=== PATIENT | female | born 1995 | race Caucasian/White ===

== ENCOUNTER 2025-01-17 02:58 | Emergency (ER) | payer SELFPAY ==
--- OUTSIDE RECORDS SUMMARY | 2020-02-28 05:28 | XMS_ITS | Continuity of Care Document ---
Author Organization [facility] Address [id number] [address] Phone Care Team Providers Care Grease Cup Filler Name Role Phone Marlon Hernandez MD Unavailable Unavailable Allergies, Adverse Reactions, Alerts Substance Reaction Status Criticality No Known Allergies Active No Inform ation Medications Medication Instructions Dosage Effective Dates (start - stop) Status Comments Ortho Micronor 0.35 mg tablet take 1 tablet by oral route every day starting two weeks after delivery. - Active 99% effective as long as 100%. 8% failure rate if supplementing or feeding other than breast milk Plus (calcium carbonate) 27 mg iron-1 mg tablet take 1 tablet by oral route every day 1.00 tablet - Active Problems Condition Type Effective Dates (start - stop) Clini jason Status Comments No Known Problems Procedures Procedure Date OFFICE/OUTPATIENT VISIT, EST URINALYSIS AUTO W/O SCOPE OFFICE/OUTPATIENT VISIT, EST URINALYSIS AUTO W/O SCOPE OFFICE/OUTPATIENT VISIT, EST URINALYSIS AUTO W/O SCOPE Treatment Plan Complete Resin-Based Composite One Surface, Posterior Resin-Based Composite One Surface, Posterior EDR Approval Note OFFICE/OUTPATIENT VISIT, EST URINALYSIS AUTO W/O SCOPE COMPLETE CBC W/AUTO DIFF WBC ROUTINE VENIPUNCTURE CULTURE AEROBIC IDENTIFY STREP B DNA AMP PROBE OFFICE/OUTPATIENT VISIT, EST URINALYSIS AUTO W/O SCOPE OFFICE/OUTPATIENT VISIT, EST URINALYSIS AUTO W/O SCOPE DRUG SCREEN OFFICE/OUTPATIENT VISIT, EST DRUG SCREEN URINALYSIS AUTO W/O SCOPE IMMUNIZATION ADMIN TDAP VACCINE >7 IM OFFICE/OUTPATIENT VISIT, EST DRUG SCREEN URINALYSIS AUTO W/O SCOPE GLUCOSE TEST COMPLETE CBC W/AUTO DIFF WBC ROUTINE VENIPUNCTURE OFFICE/OUTPATIENT VISIT, EST DRUG SCREEN URINALYSIS AUTO W/O SCOPE OB US >/= 14 WKS SNGL FETUS - Global Jun OFFICE/OUTPATIENT VISIT, EST DRUG SCREEN URINALYSIS AUTO W/O SCOPE CULT, (U) ROUTINE OFFICE/OUTPATIENT VISIT, EST DRUG SCREEN URINALYSIS AUTO W/O SCOPE CULT, (U) ROUTINE OB US < 14 WKS SINGLE FETUS OB US < 14 WKS, SINGLE FETUS PSYTX PT&/FAMILY 30 MINUTES OFFICE/OUTPATIENT VISIT, NEW IMMUNIZATION ADMIN FLU VAC NO PRSV 4 KYM 6 Months+ 019 DRUG SCREEN URINE TEST URINALYSIS AUTO W/O SCOPE No Charge Lab Codes OBSTETRIC PANEL No Charge Lab Codes No Charge Lab Codes No Charge Lab Codes No Charge Lab Codes HEPATITIS C AB TEST ROUTINE VENIPUNCTURE CULT, (U) ROUTINE No Charge Lab Codes VARICELLA ZOSTER VIRUS ANTIBODY (IGG) De CHLAMYDIA/GONNORRHEA TRICHOMONAS VAGINALIS AMPLIF THINPREP TIS PAP REFLEX HPV mRNA E6/E7 D Comprehensive Oral Evaluatio n New Or Established Bitewings Four Films Panoramic Film Intraoral Periapical First Film Intraoral Periapical Each Additional Film Intraoral Periapical Each Additional Film Intraoral Periapical Each Additional Film EDR Approval Note NO CHARGE Advance Directives Directive Yes / No Effective Date File Name No Information Encounters Encounter Description Practice Location Reason(s) For Visit Diagnoses Date Provider Providers Copied on Encounter [facility], [id number]- [place], [address], [place] tel:[phone] Pediatrics F1 No Information 0 David Mason. [address] [place], [place], [address], [place]. tel:[phone] [facility], [id number]- [place], [address], [place] tel:[phone] Family Medicine F1 No Information 0 David Mason. [address], [place], [address], [place]. tel:[phone] OFFICE/OUTPA TIENT VISIT, EST [facility], [address] [id number]- [place], [address], [place] tel:[phone] [facility] F1 routine (chief complaint) Supervision of high risk , 3rd trimester 0 David Mason. [address], [place], [address], [place]. tel:[phone] Referring Provider: Marlon Rios, [address] [place], [address] . tel:[phone] OFFICE/OUTPA TIENT VISIT, [facility], [address] 9841883RS- [place], [address], [place] tel:[phone] [place] [phone] routine (chief complaint) Supervision of high risk , 3rd trimester 0 David Mason. [address], [place], [address], [place]. tel:[phone] Referring Provider: Marlon Rios, [address] [place], [address] . tel:[phone] OFFICE/OUTPA TIENT VISIT, [facility], [id number] [place], [address], [place] tel:[phone] [place] [phone] routine (chief complaint) Supervision of high risk , 3rd trimesterSuper vision of other high risk pregnancies, third trimester 0 David Mason. [address], [place], [address], [place]. tel:[phone] Referring Provider: Marlon Rios, [address] [place], [address] . tel:[phone] [facility], [address] [place], [address], [place] tel:[phone] Dental [place] [phone] Encounter for dental exam and cleaning w/o abnormal findings 0 No Information OFFICE/OUTPA TIENT VISIT, [facility], [address] [place], [address], [place] tel:[phone] [place] [address] routine (chief complaint) Supervision of high risk , 3rd trimesterSuper vision of other high risk pregnancies, third trimester 0 David Mason. [address], [place], [address], [place]. tel:[phone] Referring Provider: Marlon Rios, [address] [place], [address] . tel:[phone] OFFICE/OUTPA TIENT VISIT, [facility], [address] [place], [address], [place] tel:[phone] [place] [address] routine (chief complaint) Supervision of high risk , 3rd trimesterSuper vision of other high risk pregnancies, third trimester 0 David Mason. [address], [place], [address], [place]. tel:[phone] Referring Provider: Marlon Rios, [address] [place], [address] . tel:[phone] OFFICE/OUTPA TIENT VISIT, [facility], [address] [id number], [address], [place] tel:[phone] [place] [address] routine (chief complaint) Supervision of high risk , 3rd trimesterSuper vision of other high risk pregnancies, third trimester 0 David Mason. [address], [place], [address], [place]. tel:[phone] Referring Provider: Marlon Rios, [address] [place], [address] . tel:[phone] OFFICE/OUTPA TIENT VISIT, [facility], [address] 73569[place], [address], [place] tel:[phone] [place] [phone] routine (chief complaint) Supervision of high risk , 3rd trimesterSuper vision of other high risk pregnancies, third trimester 0 David Mason. [address], [place], [address], [place]. tel:[phone] Referring Provider: Marlon Rios, [address] [place], [address] . tel:[phone] OFFICE/OUTPA TIENT VISIT, [facility], [address] [id number], [address], [place] tel:[phone] [place] [address] routine (chief complaint) Supervision of high risk , 3rd trimesterEncnt r for suprvsn of normal preg, unsp, third trimesterSuper vision of high risk , unsp, second trimester Apr-3 0-202 0 David Mason. [address], [place], [address], [place]. tel:[phone] Referring Provider: Marlon Rios, [address] [place], [address] . tel:[phone] OFFICE/OUTPA TIENT VISIT, [facility], [address] 0989373[place], [address], [place] tel:[phone] [place] [phone] routine (chief complaint) Supervision of other high risk pregnancies, second trimesterEncou nter for suprvsn of normal , second trimester Mar-1 9-202 0 David Mason. [address], [place], [address], [place]. tel:[phone] Referring Provider: Marlon Rios, [address] [place], [address] . tel:[phone] [facility], [id number] 68085[place]CD[place], [address], [place] tel:[phone] [place] [address] Encounter for screening for malformations Mar-0 5-202 0 Antonella Cummings. [address] [place], [address], [place]. tel:[phone] Referring Provider: Zoila Berman, [address] [place], [address]. tel:[phone] OFFICE/OUTPA TIENT VISIT, [facility], [address] [id number]- [place], [address], [place] tel:[phone] [place] [phone] routine (chief complaint) Supervision of other high risk pregnancies, second trimesterEncou nter for screening for malformationsE ncounter for suprvsn of normal , second trimester 0 Antonella Cummings. [address] [place], [address], [place]. tel:[phone] Referring Provider: Zoila Berman, [address] [place], [address]. tel:[phone] OFFICE/OUTPA TIENT VISIT, [facility], [address] [id number], [address], [place] tel:[phone] [place] [phone] routine (chief complaint) Supervision of high risk , 1st trimester 0 David Mason. [address], [place], [address], [place]. [phone] Referring Provider: Marlon Rios, [address] [place], [address] . tel:[phone] [facility], [address] 0307450NI- [place], [address], [place] tel:[phone] [place] [phone] Encounter for screening for uncertain dates 9 David Mason. [address], [place], [address], [place]. tel:[phone] Referring Provider: Marlon Rios, [address] [place], [address] . tel:[phone] [facility], [address] 6448375BE- [place], [address], [place] tel:[phone] [place] [phone] Encounter for screening for uncertain datesIrregular menstruation, unspecified 9 Antonella Cummings. [address] [place], [address], [place]. tel:[phone] Referring Provider: Zoila Berman, [address] [place], [address]. tel:[phone] PSYTX PT&/FAMILY 30 MINUTES [facility], [address] 5796928EOD[place], [address], [place] tel:[phone] [facility] 9 No Information OFFICE/OUTPA TIENT VISIT, [facility], [id number] 7203245MNDewey[place], [place], [address], [place] tel:[phone] [place] [phone] (chief complaint) Supervision of high risk , 1st trimesterEncou nter for STD screeningEncou nter for screening for malignant neoplasm of cervixEncntr for overlock sleeve setter exam (general) (routine) w/o abn findingsNausea Encounter for suprvsn of normal , unsp trimesterEncou nter for screening, unspecified 9 Antonella Cummings. [address] [place], [address], [place]. tel:[phone] Referring Provider: Zoila Berman, [address] [place], [address]. tel:[phone] [facility], [address] 3803807JXDewey[place], [place], [address], [place] tel:[phone] Dental [place] [phone] Encounter for dental exam and cleaning w/o abnormal findings 9 Heather South. [address], [place], [address], [place]. tel:[phone] Referring Provider: Brannon Romero, [address] [place], [address] . tel:[phone] [facility], [address] [id number]- [place], [address], [place] tel:[phone] [place] [address] Insufficient social insurance and welfare support Health [facility]. [address], [place], [address], [place]. tel:[phone] [facility], [address] 0696618PH- [place], [address], [place] tel:[phone] [place] [address] No Information No Information As per patient privacy policy some of the clinical information may not be visible. Family History Family Member Type Diagnosis Age At Onset Mother Problem (finding) Thyroid disease Maternal grandfather Problem (finding) Diabetes mellit Mother Problem (finding) Alive and well Sister Problem (finding) Alive and well Sister Problem (finding) endometriosis in first degree relative Immunizations Vaccine Date Status Comments Tdap (7 yrs and older) administered Note: Pt showed no reaction in clinic. VIS dated 06/17/14 given. [facility] 39175-694-04 ; Source: New Immunization Record Flu Vaccine 6 Months and older administered Note: pt tolerated i njection well. no adverse reaction noted in clinic. tt ma VIS given 12/06/2018 ; Source: New Immunization Record Payers Payer name Insurance type Covered green party ID Jesica patricio(s) Negrito Temp Medicaid [id number] Social History Type Description Quantity Date Captured Comments Alcohol Use Details Unknown Caffeine Use Details Unknown Tobacco Use Status No Information Smoking Status No Information Sex Female Sexual Orientation Heterosexual Gender Identity Female Chief Complaint And Reason For Visit No Information Reason For Referral Reason For Referral No Information Plan Of Treatment Date Type Action Status Goal Tobacco cessation counseling completed Referral Ordered: Referrals: Location: [facility] ordered Future Order: Radiology Order OB US, Limited, Fetus (S) ([id number]), Ordered on: Ordered Future Order: Lab Order Drug Scr een ([id number]), Sent on: Sent Future Order: Lab Order GTT 1 Hr Screen ([id number]), Sent on: Sent Future Order: Lab Order CBC With Differential/Platelet ([id number]), Sent on: Sent Future Order: Radiology Order OB US >= 14 Wks, Single Fetus ([id number]), Ordered on: Ordered Future Order: Lab Order CULTURE, URINE, ROUTINE ([id number]), Sent on: Sent History Of Present Illness Encounter Date Complaint History Of Prese nt Illness routine routine routine routine routine routine routine routine routine routine See PND routine Patient was not taking control pills at or around the time of her LMP. Context: confirmed by home test on 03/16/2019. This is first . Associated symptoms include breast tenderness, fatigue, headache, nausea, urinary difficulty, vomiting. Pertinent negatives include bleeding, edema, spotting, vaginal discharge. Additional information: Pt reports burning with urination 03/08/19 took azo and states symptoms have resolved.. Functional Status Date Functional Assessmen t No Information Instructions Date Instruction Additional Infor mation continue with care Rela lobo to Supervision of other high risk pregnancies, second trimester travel tobacco (ask, advise , assess, assist and arrange) alcohol illicit / recreational drugs use of any medicatio ns (including supplements, vitamins, herbs, OTC drugs) smoking counseling domestic violence seat belt use childbirth classes / hospital facilities Genetic Testing Book Vitamins risk factors identif ied by history anticipated course of c are nutrition and weight gain counseling, special diet toxoplasmosis precau tions (cats / raw meat) sexual activity exercise indications for ultrasound influenza vaccine environmental / work hazards HIV and other routine t ests Assessments Type Assessment Date No Information Patient Care Teams Name Effective Dates (start - stop) Status Members No Information
--- NOTE | 2025-01-17 02:58 | ECG_ITS ---
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
--- NOTE | 2025-01-17 03:01 | XRR_ITS ---
PROCEDURE INFORMATION: Exam: XR Chest Exam date and time: 01/17/2025 3:30 AM Age: 29 years old Clinical indication: Pain; Angina pectoris; Additional info: Cp TECHNIQUE: Imaging protocol: Radiologic exam of the chest. Views: 1 view. COMPARISON: No relevant prior studies available. FINDINGS: Lungs: There is no consolidation. Pleural spaces: No pleural effusion or pneumothorax. Heart/Mediastinum: The heart and mediastinum are normal in size. Bones/joints: Unremarkable. XR/XR chest 1V portable [id number] IMPRESSION: No acute findings.
[2025-01-17 03:02] VITALS: BP 137/99; PULSE 97; RESP 18; TEMP 36.6; O2SAT 99; BMI 27.4
--- NOTE | 2025-01-17 03:06 | W.ED.ABDPA2 ---
Documented by User: Carol Mann MD 01/17/25 03:09 HPI - Abdominal Pain General: Chief Complaint: Abdominal Pain Stated Complaint: CP Time Seen by Provider: 01/17/25 03:00 Source: patient Mode of arrival: ambulatory Limitations: no limitations History of Present Illness: 21-year-old female states she been having epigastric abdominal pain has been going on for 2 weeks states she has seen her PCP start antibiotic for possible urinalysis and had blood drawn. She states she is continue had pain across her abdomen states that hide it went up into her chest. She denies any fevers denies any worsening. Factors. Related Data Previous Rx's ?Medication ?Instructions ?Recorded amoxicillin 875 mg-potassium 1 tab PO BID #14 tabs 03/17/24 clavulanate 125 mg tablet ofloxacin 0.3 % eye drops 2 drp ophthalmic (eye) TID #5 mL 03/17/24 cephalexin 500 mg tablet 500 mg PO TID 7 days #21 tabs 01/17/25 omeprazole 40 mg capsule,delayed 40 mg PO DAILY #30 caps 01/17/25 release ondansetron 4 mg disintegrating 4 mg PO Q8H PRN nausea and 01/17/25 tablet vomiting #10 tabs sucralfate 1 gram tablet (Carafate) 1 g PO TID 4 weeks #84 tabs 01/17/25 Allergies Allergy/AdvReac Type Severity Reaction Status Date / Time codiene Allergy Intermediate ADR-Itching Uncoded 03/17/24 18:07 Review of Systems Card: Reports: chest pain GI: Reports: abdominal pain [facility] ED PFSH: Social History Smoking and tobacco/nicotine status: current every day tobacco/nicotine user Physical Exam Const: COMMON NORMALS: no acute distress, patient oriented x3 and healthy appearing HENMT: COMMON NORMALS: normocephalic and atraumatic HEAD & SCALP: normocephalic and atraumatic Eye: COMMON NORMALS: conjunctivae normal CONJUNCTIVA: Yes conjunctivae normal Neck/C-Spine: COMMON NORMALS: full ROM and supple Chest: COMMONS NORMALS: normal inspection of the chest and normal palpation of entire chest wall Resp: COMMON NORMALS: normal respiratory effort, No retractions, No use of accessory muscles and clear to auscultation bilaterally AUSCULTATION: clear to auscultation bilaterally Cardio: COMMON NORMALS: regular rate, regular rhythm and No murmurs present (Cardio) RATE: regular rate RHYTHM: regular rhythm GI: COMMON NORMALS: Normal to inspection, nondistended, normoactive bowel sounds present, Soft to palpation, non-tender and no masses PALPATION: Yes Soft to palpation Extremity: COMMON NORMALS: normal to inspection and full ROM Neuro: COMMON NORMALS: patient oriented x3, moves all extremities and no focal motor deficits Psych: COMMON NORMALS: mental status grossly normal, Normal thought process present and cooperative THOUGHT PROCESS: Normal thought process present Skin: COMMON NORMALS: no rashes or lesions noted and no wounds GENERAL SKIN EXAM: no rashes or lesions noted Course Vital Signs: Vital signs: Vital Signs Temperature 97.8 F 01/17/25 03:02 Pulse Rate 79 01/17/25 04:03 Respiratory Rate 20 H 01/17/25 04:48 Blood Pressure 117/74 01/17/25 04:03 Pulse Oximetry 98 01/17/25 04:03 Oxygen Delivery Me thod Room Air 01/17/25 03:02 MDM - Abdominal Pain Medical Records I reviewed the patient's medical records. Lab Data I reviewed the patient's lab results. 01/17/25 03:47 01/17/25 03:47 Labs/Radiology: Radiology Impressions Chest X-Ray 01/17/25 03:01 IMPRESSION: No acute findings. Laboratory Results WBC 9.39 10^3/uL (3.29-11.43) 01/17/25 03:47 RBC 5.32 10^6/uL (3.85-5.65) 01/17/25 03:47 Hgb 15.70 g/dL (11.27-16.99) 01/17/25 03:47 Hct 43.6 % (36-47) 01/17/25 03:47 MCV 82.0 fl (85-98) L 01/17/25 03:47 MCH 29.5 pg (27-33) 01/17/25 03:47 MCHC 36.0 g/dL (30-55) 01/17/25 03:47 RDW 14.0 % (12.1-15.1) 01/17/25 03:47 Plt Count 344 10^3/cmm (157-399) 01/17/25 03:47 MPV 9.5 fL (7.4-10.4) 01/17/25 03:47 Neut % (Auto) 69.8 % 01/17/25 03:47 Lymph % (Auto) 20.6 % 01/17/25 03:47 [place] % (Auto) 5.5 % 01/17/25 03:47 Eos % (Auto) 2.8 % 01/17/25 03:47 Baso % (Auto) 1.0 % 01/17/25 03:47 Neut # (Auto) 6.56 10^3/uL (1.8-7.7) 01/17/25 03:47 Lymph # (Auto) 1.9 10^3/uL (0.8-4.8) 01/17/25 03:47 [place] # (Auto) 0.5 10^3/uL (0.2-0.9) 01/17/25 03:47 Eos # (Auto) 0.3 10^3/uL (0.0-0.8) 01/17/25 03:47 Baso # (Auto) 0.1 10^3/uL (0.0-0.1) 01/17/25 03:47 Nucleated RBC % (auto) 0 % 01/17/25 03:47 Nucleated RBCs # 0.0 /100WBC 01/17/25 03:47 Sodium 139 mmol/L (136-145) 01/17/25 03:47 Potassium 3.5 mmol/L (3.5-5.1) 01/17/25 03:47 Chloride 101 mmol/L (98-107) 01/17/25 03:47 Carbon Dioxide 24 mmol/L (22-29) 01/17/25 03:47 Anion Gap 17.5 (5-19) 01/17/25 03:47 BUN 6 mg/dL (6-20) 01/17/25 03:47 Creatinine 0.7 mg/dL (0.5-0.9) 01/17/25 03:47 GFR Calculation 99.6 mL/min (90-130) 01/17/25 03:47 Glucose 101 mg/dL (65-115) 01/17/25 03:47 Calculated Osmolality 286 mOsm/kg (285-295) 01/17/25 03:47 Calcium 9.4 mg/dL (8.5-10.5) 01/17/25 03:47 Total Bilirubin 1.7 mg/dL (0.15-1.2) H 01/17/25 03:47 AST 88 U/L (0-32) H 01/17/25 03:47 ALT 53 U/L (0-33) H 01/17/25 03:47 Alkaline Phosphatase 139 U/L (35-105) H 01/17/25 03:47 Total Protein 7.4 g/dL (6.6-8.7) 01/17/25 03:47 Albumin 4.2 g/dL (3.5-5.2) 01/17/25 03:47 Globulin 3.2 g/dL (1.3-4.6) 01/17/25 03:47 Lipase 76 U/L (13-60) H 01/17/25 03:47 HCG, Qual Negative (Negative) 01/17/25 03:47 Urine Color [place] (Yellow) A 01/17/25 04:05 Urine Appearance Cloudy (CLEAR) A 01/17/25 04:05 Urine pH 6.0 (5-7) 01/17/25 04:05 Ur Specific [place] 1.026 (1.005-1.030) 01/17/25 04:05 Urine Protein 1+ (Negative) A 01/17/25 04:05 Urine Glucose (UA) Negative (Normal) 01/17/25 04:05 Urine Ketones 1+ (Negative) H 01/17/25 04:05 Urine Blood Negative (Negative) 01/17/25 04:05 Urine Nitrate Positive (Negative) A 01/17/25 04:05 Urine Bilirubin 2+ (Negative) H 01/17/25 04:05 Urine Urobilinogen 1.0 mg/dL (Negative) 01/17/25 04:05 Ur Leukocyte Esterase Trace (Negative) A 01/17/25 04:05 Urine RBC 0-2 /hpf (0-2) 01/17/25 04:05 Urine WBC 21-50 /hpf (0-5) H 01/17/25 04:05 Ur Squamous Epith Cells 21-50 /hpf (0-5) H 01/17/25 04:05 Amorphous Sediment Not Reportable 01/17/25 04:05 Urine Bacteria 2+ /hpf (NONE) H 01/17/25 04:05 Hyaline Casts 15.71 /lpf 01/17/25 04:05 XR interpretation done by ED provider, pending radiology final review ED provider radiology interpretation(s): cxr: no acute abnormality EKG Data EKG 1: I personally reviewed and interpreted this EKG as follows: EKG interpretation date: 01/17/25 EKG interpretation time: 02:58 Interpretation: nsr hr [address] elevation qrs 83 qtc 396 Discharge Plan Discharge Patient Disposition: Home Clinical Impression: Urinary tract infection, Abdominal pain Condition: Stable Prescriptions: New sucralfate [Carafate] 1 gram tablet 1 g PO TID 28 Days Qty: 84 0RF Rx Instructions: with meals omeprazole 40 mg capsule,delayed release(DR/EC) 40 mg PO DAILY Qty: 30 0RF ondansetron 4 mg tablet,disintegrating 4 mg PO Q8H PRN (Reason: nausea and vomiting) Qty: 10 0RF cephalexin 500 mg tablet 500 mg PO TID 7 Days Qty: 21 0RF No Action ofloxacin 0.3 % drops 2 drp ophthalmic (eye) TID Qty: 5 0RF amoxicillin-pot clavulanate 875-125 mg tablet 1 tab PO BID Qty: 14 0RF Discharge Orders: Discharge ED (Routine); Ordered 01/17/25 Ordered By: Esme Chin Referrals: Estephania Fisher FNP [Primary Care Provider, Nurse Practitioner] Discharge Diet: Advance as tolerated Discharge Activity: Increase activity as tolerated Patient Instructions: Abdominal Pain (ED), Opioid Safety, Pain Management, Patient Portal & Rafaela Instructions Activity Restrictions/Additional Instructions: Thank you for choosing [facility] for your healthcare needs today. You have been screened and evaluated and felt safe for discharge. Health conditions do change or evolve sometimes and as such it is important that you follow up with your Primary Doctor to be re checked, 3-5 days is a general good time frame for follow up. You are always welcome to return to the ED for re assessment if your symptoms are worsening or you have new concerns Print Language: South Korean Coding Level of Care Code ED Filenet Developer for Chg Fwd Documented by User: Esme Cihn MD 01/17/25 06:20 HPI - Abdominal Pain General: Chief Complaint: Abdominal Pain Stated Complaint: CP Time Seen by Provider: 01/17/25 03:00 Related Data Previous Rx's ?Medication ?Instructions ?Recorded amoxicillin 875 mg-potassium 1 tab PO BID #14 tabs 03/17/24 clavulanate 125 mg tablet ofloxacin 0.3 % eye drops 2 drp ophthalmic (eye) TID #5 mL 03/17/24 cephalexin 500 mg tablet 500 mg PO TID 7 days #21 tabs 01/17/25 omeprazole 40 mg capsule,delayed 40 mg PO DAILY #30 caps 01/17/25 release ondansetron 4 mg disintegrating 4 mg PO Q8H PRN nausea and 01/17/25 tablet vomiting #10 tabs sucralfate 1 gram tablet (Carafate) 1 g PO TID 4 weeks #84 tabs 01/17/25 Allergies Allergy/AdvReac Type Severity Reaction Status Date / Time codiene Allergy Intermediate ADR-Itching Uncoded 03/17/24 18:07 PFS ED PFSH: Social History Smoking and tobacco/nicotine status: current every day tobacco/nicotine user Course Vital Signs: Vital signs: Vital Signs Temperature 97.8 F 01/17/25 03:02 Pulse Rate 79 01/17/25 04:03 Respiratory Rate 20 H 01/17/25 04:48 Blood Pressure 117/74 01/17/25 04:03 Pulse Oximetry 98 01/17/25 04:03 Oxygen Delivery La thod Room Air 01/17/25 03:02 MDM - Abdominal Pain Medical Decision Making Patient care transferred to [facility] at shift change awaiting results of CT scan. Patient does have a urinary tract infection. CT scan has nonspecific findings. Mildly enlarged spleen. Nothing acute. Lab Data 01/17/25 03:47 01/17/25 03:47 Labs/Radiology: Radiology Impressions Chest X-Ray 01/17/25 03:01 IMPRESSION: No acute findings. Laboratory Results WBC 9.39 10^3/uL (3.29-11.43) 01/17/25 03:47 RBC 5.32 10^6/uL (3.85-5.65) 01/17/25 03:47 Hgb 15.70 g/dL (11.27-16.99) 01/17/25 03:47 Hct 43.6 % (36-47) 01/17/25 03:47 MCV 82.0 fl (85-98) L 01/17/25 03:47 MCH 29.5 pg (27-33) 01/17/25 03:47 MCHC 36.0 g/dL (30-55) 01/17/25 03:47 RDW 14.0 % (12.1-15.1) 01/17/25 03:47 Plt Count 344 10^3/cmm (157-399) 01/17/25 03:47 MPV 9.5 fL (7.4-10.4) 01/17/25 03:47 Neut % (Auto) 69.8 % 01/17/25 03:47 Lymph % (Auto) 20.6 % 01/17/25 03:47 [place] % (Auto) 5.5 % 01/17/25 03:47 Eos % (Auto) 2.8 % 01/17/25 03:47 Baso % (Auto) 1.0 % 01/17/25 03:47 Neut # (Auto) 6.56 10^3/uL (1.8-7.7) 01/17/25 03:47 Lymph # (Auto) 1.9 10^3/uL (0.8-4.8) 01/17/25 03:47 [place] # (Auto) 0.5 10^3/uL (0.2-0.9) 01/17/25 03:47 Eos # (Auto) 0.3 10^3/uL (0.0-0.8) 01/17/25 03:47 Baso # (Auto) 0.1 10^3/uL (0.0-0.1) 01/17/25 03:47 Nucleated RBC % (auto) 0 % 01/17/25 03:47 Nucleated RBCs # 0.0 /100WBC 01/17/25 03:47 Sodium 139 mmol/L (136-145) 01/17/25 03:47 Potassium 3.5 mmol/L (3.5-5.1) 01/17/25 03:47 Chloride 101 mmol/L (98-107) 01/17/25 03:47 Carbon Dioxide 24 mmol/L (22-29) 01/17/25 03:47 Anion Gap 17.5 (5-19) 01/17/25 03:47 BUN 6 mg/dL (6-20) 01/17/25 03:47 Creatinine 0.7 mg/dL (0.5-0.9) 01/17/25 03:47 GFR Calculation 99.6 mL/min (90-130) 01/17/25 03:47 Glucose 101 mg/dL (65-115) 01/17/25 03:47 Calculated Osmolality 286 mOsm/kg (285-295) 01/17/25 03:47 Calcium 9.4 mg/dL (8.5-10.5) 01/17/25 03:47 Total Bilirubin 1.7 mg/dL (0.15-1.2) H 01/17/25 03:47 AST 88 U/L (0-32) H 01/17/25 03:47 ALT 53 U/L (0-33) H 01/17/25 03:47 Alkaline Phosphatase 139 U/L (35-105) H 01/17/25 03:47 Total Protein 7.4 g/dL (6.6-8.7) 01/17/25 03:47 Albumin 4.2 g/dL (3.5-5.2) 01/17/25 03:47 Globulin 3.2 g/dL (1.3-4.6) 01/17/25 03:47 Lipase 76 U/L (13-60) H 01/17/25 03:47 HCG, Qual Negative (Negative) 01/17/25 03:47 Urine Color [place] (Yellow) A 01/17/25 04:05 Urine Appearance Cloudy (CLEAR) A 01/17/25 04:05 Urine pH 6.0 (5-7) 01/17/25 04:05 Ur Specific [place] 1.026 (1.005-1.030) 01/17/25 04:05 Urine Protein 1+ (Negative) A 01/17/25 04:05 Urine Glucose (UA) Negative (Normal) 01/17/25 04:05 Urine Ketones 1+ (Negative) H 01/17/25 04:05 Urine Blood Negative (Negative) 01/17/25 04:05 Urine Nitrate Positive (Negative) A 01/17/25 04:05 Urine Bilirubin 2+ (Negative) H 01/17/25 04:05 Urine Urobilinogen 1.0 mg/dL (Negative) 01/17/25 04:05 Ur Leukocyte Esterase Trace (Negative) A 01/17/25 04:05 Urine RBC 0-2 /hpf (0-2) 01/17/25 04:05 Urine WBC 21-50 /hpf (0-5) H 01/17/25 04:05 Ur Squamous Epith Cells 21-50 /hpf (0-5) H 01/17/25 04:05 Amorphous Sediment Not Reportable 01/17/25 04:05 Urine Bacteria 2+ /hpf (NONE) H 01/17/25 04:05 Hyaline Casts 15.71 /lpf 01/17/25 04:05 Discharge Plan Discharge Patient Disposition: Home Clinical Impression: Urinary tract infection, Abdominal pain Condition: Stable Prescriptions: New sucralfate [Carafate] 1 gram tablet 1 g PO TID 28 Days Qty: 84 0RF Rx Instructions: with meals omeprazole 40 mg capsule,delayed release(DR/EC) 40 mg PO DAILY Qty: 30 0RF ondansetron 4 mg tablet,disintegrating 4 mg PO Q8H PRN (Reason: nausea and vomiting) Qty: 10 0RF cephalexin 500 mg tablet 500 mg PO TID 7 Days Qty: 21 0RF No Action ofloxacin 0.3 % drops 2 drp ophthalmic (eye) TID Qty: 5 0RF amoxicillin-pot clavulanate 875-125 mg tablet 1 tab PO BID Qty: 14 0RF Discharge Orders: Discharge ED (Routine); Ordered 01/17/25 Ordered By: Esme Chin Referrals: Estephania Fisher FNP [Primary Care Provider, Nurse Practitioner] Discharge Diet: Advance as tolerated Discharge Activity: Increase activity as tolerated Patient Instructions: Abdominal Pain (ED), Opioid Safety, Pain Management, Patient Portal & Rafaela Instructions Activity Restrictions/Additional Instructions: Thank you for choosing [facility] for your healthcare needs today. You have been screened and evaluated and felt safe for discharge. Health conditions do change or evolve sometimes and as such it is important that you follow up with your Primary Doctor to be re checked, 3-5 days is a general good time frame for follow up. You are always welcome to return to the ED for re assessment if your symptoms are worsening or you have new concerns Print Language: South Korean Coding Level of Care Code ED Filenet Developer for Masoud Tapia
[2025-01-17 03:56] VITALS: RESP 18
[2025-01-17] MEDS: ondansetron 2 mg/ML SDV 2 mL 4 MG IVP (03:56)
[2025-01-17] MEDS: lidocaine 2% viscous 15 ML, aluminum-mag hydrox-simethicon 30 ML, sucralfate oral liq 1 GM PO (03:56)
[2025-01-17] MEDS: morphine 4 mg/mL SDV 1 mL IVP ×2 (03:56→04:48)
[2025-01-17 03:58] LABS: Hematocrit 43.6 % (36-47); Hemoglobin 15.70 g/dL (11.27-16.99); Mean Corpuscular HGB Conc 36.0 g/dL (30-55); Mean Corpuscular Hemoglobin 29.5 pg (27-33); Mean Corpuscular Volume 82.0 fl (85-98); Nucleated Red Blood Cells % 0 %; Platelet Count 344 10^3/cmm (157-399); Red Blood Count 5.32 10^6/uL (3.85-5.65); White Blood Count 9.39 10^3/uL (3.29-11.43)
[2025-01-17 04:03] VITALS: BP 117/74; PULSE 79; O2SAT 98
--- NOTE | 2025-01-17 04:03 | PC.NURSE ---
Delay in obtaining labs due to inability to establish IV access, requiring 5 attempts.
[2025-01-17 04:13] LABS: Glucose Urine UA Negative (Normal); Nitrate Urine Positive (Negative); Specific Gravity, Urine 1.026 (1.005-1.030)
[2025-01-17 04:17] LABS: HCG, Serum Qual Negative (Negative)
[2025-01-17 04:17] LABS: Add Urine Microscopic? YES
[2025-01-17 04:18] LABS: Alanine Aminotransferase 53 U/L (0-33); Albumin Level 4.2 g/dL (3.5-5.2); Alkaline Phosphatase 139 U/L (35-105); Anion Gap 17.5 (5-19); Aspartate Amino Transferase 88 U/L (0-32); Blood Urea Nitrogen 6 mg/dL (6-20); Calcium 9.4 mg/dL (8.5-10.5); Carbon Dioxide 24 mmol/L (22-29); Chloride 101 mmol/L (98-107); Creatinine Clr Calc Pharmacy 116.8278; Globulin 3.2 g/dL (1.3-4.6); Glucose 101 mg/dL (65-115); Lipase 76 U/L (13-60); Osmolality Calculated 286 mOsm/kg (285-295); Potassium 3.5 mmol/L (3.5-5.1); Sodium 139 mmol/L (136-145); Total Protein 7.4 g/dL (6.6-8.7)
[2025-01-17 04:36] LABS: UA Slide Review UA Slide Review Perf
--- NOTE | 2025-01-17 04:44 | CTR_ITS ---
PROCEDURE INFORMATION: Exam: CT Abdomen And Pelvis With Contrast Exam date and time: 01/17/2025 4:55 AM Age: 29 years old Clinical indication: Abdominal pain; Prior surgery; Surgery date: 6+ months; Surgery type: Gallbladder, fallopian tubes removed; Additional info: Abd pain TECHNIQUE: Imaging protocol: Computed tomography of the abdomen and pelvis with contrast. Radiation optimization: All CT scans at this facility use at least one of these dose optimization techniques: automated exposure control; mA and/or kV adjustment per patient size (includes targeted exams where dose is matched to clinical indication); or iterative reconstruction. Contrast material: [id number]; Contrast volume: 100 ml; Contrast route: INTRAVENOUS (IV); COMPARISON: CR (CHEST, ) 17/01/2025 03:30 RADIATION DOSE METRICS: Total DLP (mGy-cm): 650.83 FINDINGS: Lungs: No consolidation in the visualized lung bases. Liver: No hepatomegaly. There are no enhancing liver masses. Gallbladder and biliary ducts: There has been a cholecystectomy. There is no evidence of biliary ductal dilation. Pancreas: Normal in size and homogeneous enhancement. No ductal dilation. Spleen: The spleen is enlarged, measuring 14.7 cm in oblique length. Adrenal glands: Normal. No mass. Kidneys and ureters: There is no hydronephrosis. No renal or obstructing ureteral calculi. Stomach and bowel: Wall thickening of multiple bowel loops consistent with infectious or inflammatory enteritis (coronal series 6, image 32; axial series 4, images 26- 38). Appendix: No evidence of appendicitis. Intraperitoneal space: No free air. No significant fluid collection. Vasculature: There is no abdominal aortic aneurysm or dissection. The celiac trunk, SMA and DAVID are widely patent. Lymph nodes: No enlarged retroperitoneal or mesenteric lymph nodes. Urinary bladder: The bladder shows a normal contour and is free of calcific opacities. Reproductive: The uterus is unremarkable. Mildly prominent ovaries, may be related to patient's young age. Bones/joints: No acute fracture. Soft tissues: Normal. CT/CT abdomen pelvis w con* [id number] IMPRESSION: 1. Wall thickening of multiple bowel loops consistent with infectious or inflammatory enteritis. 2. Splenomegaly. Findings were discussed with Dr. Chin at 01/17/2025 6:17 AM CDT.
[2025-01-17] MEDS: cefTRIAXone 1,000 mg SDV 1000 MG IVP (04:45)
[2025-01-17 04:48] VITALS: RESP 20
[2025-01-17 06:31] VITALS: BP 117/74; PULSE 55; O2SAT 97
--- NOTE | 2025-01-17 07:59 | DCPLANNER ---
messaged gen surg for er f/u
== END 2025-01-17 06:23 | disposition home or self-care (01) ==
PROVIDERS: Emergency Medicine; Emergency Provider Emergency Medicine; PCP Nurse Practitioner Family
DX: N39.0 Urinary tract infection, site not specified (principal); R10.9 Unspecified abdominal pain; Z72.0 Tobacco use
CPT/HCPCS: 71045; 74177; 80053; 81001; 83690; 84703; 85025; 93005; 96374; 96375; 96376; 99285; J0696; J2270; J2405; J9999